=== PATIENT | female | born 1975 | race Caucasian/White ===

== ENCOUNTER 2024-09-27 20:25 | Emergency (ER) | payer MEDICAID ==
[~2024-09-27] VITALS: Ht 170.2 cm; Wt 86.0 kg
[2024-09-27 20:28] VITALS: PULSE 82; TEMP 98.6; O2SAT 98
[2024-09-27 23:51] VITALS: BP 130/78; RESP 16
[2024-09-27] MEDS: LIDOCAINE 5% PATCH TOP SCH (23:51)
[2024-09-28] MEDS ORDERED: LIDO700A15 TP (01:05)
== END 2024-09-28 00:15 | disposition home or self-care (01) ==
LOC: ER 20:25
DX: S90.31XA Contusion of right foot, initial encounter (principal); J45.909 Unspecified asthma, uncomplicated; Z88.6 Allergy status to analgesic agent; X58.XXXA Exposure to other specified factors, initial encounter; Y93.89 Activity, other specified; Y92.89 Other specified places as the place of occurrence of the external cause; Y99.8 Other external cause status
CPT/HCPCS: 73630; 99283